=== PATIENT | female | born 1950 | race Caucasian/White ===

== ENCOUNTER → 2018-01-05 | Day surgery (SDC) | payer OTHER ==
[~2018-01-05] VITALS: Ht 154.9 cm; Wt 74.8 kg
[~2018-01-05] MED LIST: ANTIVERT 12.512.5 MG PO; BIOTIN300 MC1 PO; CHERATUSSIN AC118 M1 PO; DOCUSATE SODIU100 MG PO; FLAGYL500 MG PO; FLONASE ALLERG9.9 ML NAS; LEVOTHYROXINE50 MCG PO; OXYBUTYNIN CHLOR5 M2 PO; PERCOCET 325 MG1 TA2 PO; PROTONIX40 M3 PO; SERTRALINE HCL25 MG PO; TESSALON PERLE100 M1 PO; TRANS SCOPE PAT1 PAT TOP; VALIUM 10 MG. T10 MG PO; VESICARE 10MG10 MG PO; VESICARE10 MG PO; VITAMIN B-12500 MC2 PO; VITAMIN D2000 UNIT PO; ZOFRAN ODT4 MG SL
--- NOTE | 2018-01-05 09:33 | Operative Report ---
Operative/Inv Procedure Report Surgery Date: 01/05/18 Name of Procedure: urethral sling, cystoscopy Pre-Operative Diagnosis: stress incontinence Post-Operative Diagnosis: same Estimated Blood Loss: less than 50ml Surgeon/Book Illustrator: Usha Sheehan MD Anesthesia: laryngeal mask airway Implants: vaginal mesh Drains: none Complications: none Condition: stable Operative Indication: stress incontinence Operative/Procedure Note Note: Operative dictation on patient Faina Crane. She 67-year-old female with a history of stress urinary incontinence. His very bothersome and she needs to wear pads on a regular basis. She wished to have this addressed with the urethral sling. She was given the risks benefits and alternatives of vaginal mesh. All questions were answered in the office and in the holding area before she signed a consent. Patient was taken to the operating placed on the operating table in supine position. Timeout was performed. IV antibiotics were infused and LMA anesthesia was begun. She was placed in the dorsolithotomy position and prepped and draped in standard sterile fashion after shaving the genitalia region. Lechuga catheter was placed in the bladder was drained. The Lechuga was placed on the patient's abdomen and since retractor was placed and 1% lidocaine with was infiltrated into the anterior vaginal wall beneath the urethra. Incision was made and vaginal flaps are created and care not to injure the urethra. The Altis Sling Coloplast sling kit was then opened and placed using the trochars provided. Care was taken not to traverse the vaginal fornices. The sling was seen to be in a nice tension-free manner with a DeBakey between the urethra and the sling. The area was copiously irrigated with bacitracin irrigation. The tightening suture was then cut. The incision was closed using 3-0 Vicryl running locking every third suture. There was no mesh in the vaginal fornices. The Lechuga catheter was removed and cystoscopy was performed. There was no mesh in the bladder or urethra. There was no abnormalities of the bladder or the ureteral orifices. 2 inch vaginal packing impregnated with bacitracin ointment was placed into the vaginal canal. The sponge and needle count were correct at the end of the case. Patient tolerated procedure well and transferred to the recovery room stable condition. Findings: No mesh in bladder urethra or vaginal fornices. Discharge Disposition: PACU
== END ==
LOC: STS 01:39
DX: N39.3 Stress incontinence (female) (male) (principal); R35.0 Frequency of micturition; N94.10 Unspecified dyspareunia; K21.9 Gastro-esophageal reflux disease without esophagitis; R10.9 Unspecified abdominal pain
CPT/HCPCS: C1771; J0690; J2250